=== PATIENT | female | born 1985 | race African-American/Black ===

== ENCOUNTER 2024-06-16 18:45 | Inpatient (IN) | payer OTHER ==
[2024-06-16 19:15] VITALS: BMI 29.5
[2024-06-16] MEDS ORDERED: IBUPROFEN 400 MG TABLET (FP) PO PRN (20:40)
[2024-06-16] MEDS ORDERED: MAGNESIUM HYDROX 2400MG/30ML ORAL SUSPENSION 30 ML CUP PO PRN (20:40)
[2024-06-16] MEDS ORDERED: IBUPROFEN 600 MG TABLET (FP) PO PRN (20:40)
[2024-06-16] MEDS ORDERED: NALOXONE HCL 0.4 MG/ML VIAL IM PRN (20:40)
[2024-06-16] MEDS ORDERED: ACETAMINOPHEN 325 MG TABLET (FP) PO PRN (20:40)
[2024-06-16] MEDS ORDERED: DICYCLOMINE HCL 10 MG CAPSULE PO PRN (20:40)
[2024-06-16] MEDS ORDERED: BISMUTH SUBSALICYLATE 524 MG/30 ML PO PRN (20:40)
[2024-06-16] MEDS ORDERED: guaiFENesin 600 MG TABLET.ER (FP) PO PRN (20:40)
[2024-06-16] MEDS ORDERED: NALOXONE (NARCAN) HCL 4 MG/0.1 ML SPRAY NS PRN (20:40)
[2024-06-16] MEDS ORDERED: LOPERAMIDE HCL 2 MG CAPSULE PO PRN (20:40)
[2024-06-16] MEDS ORDERED: POLYETHYLENE GLYCOL (HEALTHYLAX) 3350 17 GM PACKET PO PRN (20:40)
[2024-06-16] MEDS ORDERED: BENZOCAINE/MENTHOL (CHLORASEPTIC ) LOZENGE MM PRN (20:40)
[2024-06-16] MEDS ORDERED: ONDANSETRON *ODT* 4 MG TABLET SL PRN (20:40)
[2024-06-16] MEDS ORDERED: BENZONATATE 200 MG CAPSULE PO PRN (20:40)
[2024-06-16] MEDS: MAG HYDROX/AL HYDROX/SIMETH 30 ML UNIT-DOSE CUP PO PRN (22:08)
[2024-06-16] MEDS: hydrOXYzine PAMOATE 25 MG CAPSULE (FP) PO PRN (22:08)
[2024-06-16] MEDS: THIAMINE 100 MG TABLET PO SCH (22:09)
[2024-06-16] MEDS: MELATONIN 5 MG TABLETS PO SCH (22:09)
[2024-06-17] MEDS: METHOCARBAMOL 500 MG TABLET PO PRN (07:18)
[2024-06-17] MEDS: cloNIDine HCL 0.1 MG TABLET PO ONE ×2 (07:24→10:33)
[2024-06-17] MEDS ORDERED: chlordiazePOXIDE HCL 25 MG CAPSULE PO PRN (09:08)
[2024-06-17] MEDS: ASPIRIN 81 MG CHEWABLE TABLETS PO SCH (10:18)
[2024-06-17] MEDS: NICOTINE 14 MG/24 HOURS TOPICAL PATCH TD SCH (10:18)
[2024-06-17] MEDS: HYDROCHLOROTHIAZIDE 25 MG TABLET (FP) PO SCH (10:18)
[2024-06-17] MEDS: FAMOTIDINE 20 MG TABLET PO SCH (10:18)
[2024-06-17] MEDS: PRENATAL VITAMINS W/ FOLIC ACID TABLET (FP) PO SCH (10:18)
[2024-06-17] MEDS: amLODIPine BESYLATE 10 MG TABLET (FP) PO SCH (10:18)
[2024-06-17] MEDS: chlordiazePOXIDE HCL 25 MG CAPSULE PO SCH (10:19)
[2024-06-17 13:36] LABS: HEMATOCRIT 41.4 % (32.4-45.2); HEMOGLOBIN 13.2 GM/dL (10.7-15.3); MCH 32.9 pg (25.7-33.7); MEAN CELL VOLUME 102.7 fl (80-96); MEAN PLT VOLUME 9.2 fl (7.5-11.1); PLATELET COUNT 227 10^3/uL (134-434); RBC 4.03 M/mm3 (3.60-5.2); RDW 15.2 % (11.6-15.6)
[2024-06-17 14:00] LABS: CHLORIDE 103 mmol/L (98-107); POTASSIUM 3.8 mmol/L (3.5-5.1); SODIUM 137 mmol/L (136-145)
[2024-06-17 14:16] LABS: ALBUMIN 3.4 g/dl (3.4-5.0); ANION GAP 9 mmol/L (4-13); CO2 25 mmol/L (21-32)
[2024-06-17 14:17] LABS: BLOOD UREA NITROGEN 6.7 mg/dL (7-18)
[2024-06-17 14:19] LABS: CREATININE 0.8 mg/dL (0.55-1.3); GLUCOSE,RANDOM 83 mg/dL (74-106); SGPT/ALT 75 U/L (13-61)
[2024-06-17 14:20] LABS: SGOT/AST 111 U/L (15-37)
[2024-06-17 14:21] LABS: ALK PHOS 59 U/L (45-117); TOT PROT 6.8 g/dl (6.4-8.2)
[2024-06-17] MEDS: propRANOLol HCL 10 MG TABLET PO ONE (21:28)
[2024-06-18] MEDS: cloNIDine HCL 0.1 MG TABLET PO ONE (08:02)
[2024-06-19] MEDS: chlordiazePOXIDE HCL 25 MG CAPSULE PO SCH (05:29)
[2024-06-19] MEDS: NICOTINE POLACRILEX 2 MG GUM BUC PRN (09:55)
[2024-06-20] MEDS ORDERED: chlordiazePOXIDE HCL 10 MG CAPSULE PO PRN
[2024-06-20] MEDS: chlordiazePOXIDE HCL 10 MG CAPSULE PO SCH (05:22)
[2024-06-21] MEDS: chlordiazePOXIDE HCL 10 MG CAPSULE PO SCH (05:30)
[2024-06-21 09:55] VITALS: BP 149/86; PULSE 97; RESP 18; TEMP 97.1
[2024-06-22] MEDS ORDERED: chlordiazePOXIDE HCL 10 MG CAPSULE PO ONE (05:00)
== END 2024-06-21 09:33 | disposition home or self-care (01) | DRG 774 ==
LOC: YASAS 18:45 → Y3N 20:50
PROVIDERS: ADMIT Allergy & Immunology; ATTEND Surgery
PROC: HZ2ZZZZ Detoxification Services for Substance Abuse Treatment (ICD-10-PCS; principal; 2024-06-16)
DX: F10.230 Alcohol dependence with withdrawal, uncomplicated (principal); F14.20 Cocaine dependence, uncomplicated; F17.210 Nicotine dependence, cigarettes, uncomplicated; I10 Essential (primary) hypertension; J45.909 Unspecified asthma, uncomplicated
CPT/HCPCS: 36415; 80053; 80305; 80307; 81025; 85027; 86780; 93005; 93010